=== PATIENT | male | born 1975 | race Caucasian/White ===

== ENCOUNTER 2017-06-02 14:44 | Inpatient (IN) | payer SELFPAY ==
[~2017-06-02] VITALS: Ht 170.1 cm; Wt 66.7 kg
[~2017-06-02 14:44] MED LIST: ROBAXIN750 MG PO; TRAMADOL HCL50 MG PO
[2017-06-02 15:03] LABS: BASO % 0.4 % (0.0-1.0); EOS # 0.2 10*3/uL (0.0-0.4); EOS % 2.3 % (1.0-4.0); HEMATOCRIT 42.8 % (42.0-52.0); HEMOGLOBIN 14.4 g/dl (14.0-18.0); LYMPH # 1.7 10*3/uL (1.3-4.4); LYMPH % 17.9 % (27.0-41.0); MEAN CELL VOLUME 95.1 fl (80.0-94.0); MEAN CORPUSCULAR HGB CONC 33.6 g/dl (33.0-37.0); MEAN PLATELET VOLUME 9.3 fl (9.6-12.3); MONO # 0.9 10*3/uL (0.1-1.0); MONO % 9.2 % (3.0-9.0); NEUT # 6.6 10*3/uL (2.3-7.9); NEUT % 69.8 % (47.0-73.0); PLATELET COUNT AUTOMATED 307 10*3/uL (130-400); RED CELL DISTRI WIDTH 13.5 % (0-14.5); WHITE BLOOD COUNT 9.4 10*3/uL (4.8-10.8)
[2017-06-02 15:12] LABS: ACT PARTIAL THROMBO TIME 23.5 SECONDS (20.8-31.5); INTERNATIONAL NORM RATIO 0.9 (2.0-3.5)
[2017-06-02 15:20] LABS: ALBUMIN 3.6 gm/dl (3.1-4.5); ALKALINE PHOSPHATASE 81 U/L (45-117); BUN 14 mg/dl (7-24); CHLORIDE 105 mmol/L (98-107); CREATININE 1.03 mg/dL (0.70-1.30); SGOT/AST 20 IU/L (3-35); SGPT/ALT 24 U/L (12-78); SODIUM 141 mmol/L (136-145); TOTAL PROTEIN 6.9 gm/dL (6.4-8.2)
[2017-06-02 15:21] LABS: TROPONIN I < 0.015 ng/ml (<0.045)
[2017-06-02 15:30] VITALS: BP 148/88
[2017-06-02 20:00] VITALS: BP 125/69
== END 2017-06-02 23:48 | disposition left against medical advice (07) | DRG 313 ==
LOC: ED 14:44 → EDHOLD 15:34 → 5E 16:01
PROVIDERS: Emergency Medicine
DX: R07.9 Chest pain, unspecified (principal); E83.41 Hypermagnesemia; D72.810 Lymphocytopenia; D72.89 Other specified disorders of white blood cells; Z53.21 Procedure and treatment not carried out due to patient leaving prior to being seen by health care provider; F17.200 Nicotine dependence, unspecified, uncomplicated; R00.1 Bradycardia, unspecified; F17.210 Nicotine dependence, cigarettes, uncomplicated; Z82.49 Family history of ischemic heart disease and other diseases of the circulatory system; Z91.041 Radiographic dye allergy status; Z71.6 Tobacco abuse counseling